=== PATIENT | male | born 1955 | race Caucasian/White ===

== ENCOUNTER → 2024-06-17 | Outpatient (CLI) | payer OTHER, SELFPAY ==
[2024-06-17 11:06] LABS: Parathyroid Hormone Intact 37.7 pg/ml (18.5-88.0); Prostate Specific Antigen 7.83 ng/mL (0-4.00)
[2024-06-17 11:07] LABS: Alanine Aminotransferase 28 U/L (10-49); Albumin, Serum 5.3 gm/dL (3.4-4.8); Albumin/Globulin Ratio 2.4 (1.2-2.2); Alkaline Phosphatase 86 U/L (46-116); Anion Gap 11 (7-16); Aspartate Amino Transferase 14 U/L (0-34); BUN/Creatinine Ratio 21 Ratio (12-20); Bilirubin,Total 0.8 mg/dL (0.3-1.2); Blood Urea Nitrogen 21 mg/dL (9-23); Calcium 10.3 mg/dL (8.3-10.6); Calcium (Corrected) 10.3 mg/dL (8.5-10.1); Carbon Dioxide 26.2 mMol/L (20.0-31.0); Cardiac Risk Estimate 3.9 RATIO (4.0-6.7); Chloride 101 mMol/L (98-107); Cholesterol 132 mg/dL (132-200); Globulin 2.2 gm/dL (2.3-3.5); Glucose 135 mg/dL (74-106); HDL Cholesterol 34 mg/dL (40-60); LDL Cholesterol,Calculated 72 mg/dL (0-130); Osmolality,Calculated 280 (275-295); Potassium 4.3 mMol/L (3.4-5.1); Sodium 138 mMol/L (136-145); Total Protein 7.5 gm/dL (5.7-8.2); Triglycerides 131 mg/dL (30-150); eGFR > 60 See Note
[2024-06-17 11:58] LABS: Glucose Estimated Average 111 mg/dL (80-131); Hemoglobin A1C 5.5 % Hgb (4.8-6.0)
== END | disposition home or self-care (01) ==
LOC: COPL 09:25
PROVIDERS: PCP Family Medicine; Referring Provider Physician Assistant; Visit Provider Physician Assistant
DX: I10 Essential (primary) hypertension (principal); E83.52 Hypercalcemia; E78.5 Hyperlipidemia, unspecified; R97.20 Elevated prostate specific antigen [PSA]
CPT/HCPCS: 36415; 80053; 80061; 83036; 83970; 84153

== ENCOUNTER → 2024-11-18 | Outpatient (CLI) | payer OTHER, SELFPAY ==
[2024-11-18 09:01] LABS: Basophils # (Auto) 0.1 Thou/mm3 (0.0-0.2); Basophils % (Auto) 1 % (0-2.5); Eosinophils # (Auto) 0.1 Thou/mm3 (0.0-0.5); Eosinophils % (Auto) 2 % (0-10); Hematocrit 42.2 % (41.0-53.0); Hemoglobin 14.5 g/dL (13.5-16.0); Immature Granulocytes % (Auto) 0 % (0-0); Immature Granulocytes Auto 0.02 Thou/mm3 (0.00-0.00); Lymphocytes # (Auto) 3.3 Thou/mm3 (1.0-4.8); Lymphocytes % (Auto) 35 % (10-50); Mean Corpuscular HGB Conc 34.4 g/dl (31.0-37.0); Mean Corpuscular Hemoglobin 32.5 pg (25.0-35.0); Mean Corpuscular Volume 95 fL (80-100); Monocytes # (Auto) 0.7 Thou/mm3 (0.0-0.8); Monocytes % (Auto) 8 % (0-12); Neutrophils # (Auto) 5.2 Thou/mm3 (1.8-7.7); Neutrophils % (Auto) 55 % (37-80); Nucleated Red Blood Cell % 0 /100 WBC (0); Platelet Count 230 Thou/mm3 (140-440); RDW Standard Deviation 45.2 fL (35.1-43.9); Red Blood Count 4.46 Miln/mm3 (4.50-5.90); White Blood Count 9.5 Thou/mm3 (3.8-10.6)
[2024-11-18 09:18] LABS: Alanine Aminotransferase 23 U/L (10-49); Albumin, Serum 4.8 gm/dL (3.4-4.8); Alkaline Phosphatase 99 U/L (46-116); Anion Gap 12 (7-16); Aspartate Amino Transferase 22 U/L (0-34); BUN/Creatinine Ratio 20 Ratio (12-20); Bilirubin,Direct 0.2 mg/dL (0.0-0.3); Bilirubin,Total 0.6 mg/dL (0.3-1.2); Blood Urea Nitrogen 18 mg/dL (9-23); Calcium 9.8 mg/dL (8.3-10.6); Carbon Dioxide 26.2 mMol/L (20.0-31.0); Cardiac Risk Estimate 3.3 RATIO (4.0-6.7); Chloride 103 mMol/L (98-107); Cholesterol 114 mg/dL (132-200); Creatinine (Component) 0.9 mg/dL (0.6-1.3); Free T4 (Free Thyroxine) 1.27 ng/dL (0.89-1.76); Glucose 111 mg/dL (74-106); HDL Cholesterol 35 mg/dL (40-60); LDL Cholesterol,Calculated 56 mg/dL (0-130); Osmolality,Calculated 284 (275-295); Potassium 3.9 mMol/L (3.4-5.1); Sodium 141 mMol/L (136-145); Thyroid Stimulating Hormone 1.43 uIU/mL (0.55-4.78); Total Protein 7.5 gm/dL (5.7-8.2); Triglycerides 115 mg/dL (30-150); eGFR > 60 See Note
== END | disposition home or self-care (01) ==
LOC: COPL 07:09
PROVIDERS: PCP Family Medicine; Referring Provider Internal Medicine Cardiovascular Disease; Visit Provider Internal Medicine Cardiovascular Disease
DX: I10 Essential (primary) hypertension (principal); E78.2 Mixed hyperlipidemia; I25.118 Atherosclerotic heart disease of native coronary artery with other forms of angina pectoris
CPT/HCPCS: 36415; 80048; 80061; 80076; 84439; 84443; 85025

== ENCOUNTER → 2024-12-17 | Outpatient (CLI) | payer OTHER, SELFPAY ==
[2024-12-17 09:38] LABS: Glucose Estimated Average 120 mg/dL (80-131); Hemoglobin A1C 5.8 % Hgb (4.8-6.0)
[2024-12-17 09:47] LABS: Alanine Aminotransferase 23 U/L (10-49); Albumin, Serum 4.8 gm/dL (3.4-4.8); Alkaline Phosphatase 91 U/L (46-116); Anion Gap 8 (7-16); Aspartate Amino Transferase 25 U/L (0-34); BUN/Creatinine Ratio 15 Ratio (12-20); Bilirubin,Total 0.5 mg/dL (0.3-1.2); Blood Urea Nitrogen 15 mg/dL (9-23); Calcium 9.7 mg/dL (8.3-10.6); Calcium (Corrected) 9.7 mg/dL (8.5-10.1); Carbon Dioxide 26.8 mMol/L (20.0-31.0); Cardiac Risk Estimate 2.8 RATIO (4.0-6.7); Chloride 105 mMol/L (98-107); Cholesterol 98 mg/dL (132-200); Globulin 2.4 gm/dL (2.3-3.5); Glucose 117 mg/dL (74-106); HDL Cholesterol 35 mg/dL (40-60); LDL Cholesterol,Calculated 41 mg/dL (0-130); Osmolality,Calculated 281 (275-295); Potassium 4.3 mMol/L (3.4-5.1); Sodium 140 mMol/L (136-145); Total Protein 7.2 gm/dL (5.7-8.2); Triglycerides 108 mg/dL (30-150); eGFR > 60 See Note
[2024-12-17 10:22] LABS: Prostate Specific Antigen 10.87 ng/mL (0-4.00)
== END | disposition home or self-care (01) ==
LOC: COPL 07:36
PROVIDERS: PCP Family Medicine; Referring Provider Physician Assistant; Visit Provider Physician Assistant
DX: E78.5 Hyperlipidemia, unspecified (principal); I10 Essential (primary) hypertension; R73.01 Impaired fasting glucose; R97.20 Elevated prostate specific antigen [PSA]
CPT/HCPCS: 36415; 80053; 80061; 83036; 84153

== ENCOUNTER → 2025-06-17 | Outpatient (CLI) | payer OTHER, SELFPAY ==
[2025-06-17 08:06] LABS: Collection Type, Urine Clean Catch
[2025-06-17 08:21] LABS: Bilirubin,Urine Negative (Negative); Blood,Urine Trace (Negative); Clarity,Urine Clear (Clear/Hazy); Color,Urine Lt-Yellow (Lt Yel-Yel); Glucose, Urine Negative (Negative); Hyaline Casts,Urine < 1 /hpf (0-1); Ketones,Urine Negative (Negative); Leukocyte Esterase,Urine Positive (Negative); Nitrite,Urine Negative (Negative); PH,Urine 5.5 (5.0-7.0); Protein,Urine Negative (Neg - Trace); RBC,Urine 7 /hpf (0-3); Specific Gravity,Urine 1.028 (1.001-1.035); Squamous Epithelial Cell,Urine 1 /hpf (0-5); Urobilinogen,Urine Negative mg/dL (0.0-1.0); WBC,Urine 12 /hpf (0-5)
[2025-06-17 08:30] LABS: Basophils # (Auto) 0.1 Thou/mm3 (0.0-0.2); Basophils % (Auto) 1 % (0-2.5); Eosinophils # (Auto) 0.1 Thou/mm3 (0.0-0.5); Eosinophils % (Auto) 1 % (0-10); Hematocrit 42.9 % (41.0-53.0); Hemoglobin 14.7 g/dL (13.5-16.0); Immature Granulocytes Auto 0.02 Thou/mm3 (0.00-0.00); Lymphocytes # (Auto) 3.2 Thou/mm3 (1.0-4.8); Lymphocytes % (Auto) 34 % (10-50); Mean Corpuscular HGB Conc 34.3 g/dl (31.0-37.0); Mean Corpuscular Hemoglobin 32.7 pg (25.0-35.0); Mean Corpuscular Volume 95 fL (80-100); Monocytes # (Auto) 0.8 Thou/mm3 (0.0-0.8); Monocytes % (Auto) 9 % (0-12); Neutrophils # (Auto) 5.2 Thou/mm3 (1.8-7.7); Neutrophils % (Auto) 55 % (37-80); Nucleated Red Blood Cell # 0.00 Thou/mm3 (0.00-0.00); Nucleated Red Blood Cell % 0 /100 WBC (0); Platelet Count 242 Thou/mm3 (140-440); RDW Standard Deviation 46.9 fL (35.1-43.9); Red Blood Count 4.50 Miln/mm3 (4.50-5.90); White Blood Count 9.4 Thou/mm3 (3.8-10.6)
[2025-06-17 08:35] LABS: Glucose Estimated Average 120 mg/dL (80-131); Hemoglobin A1C 5.8 % Hgb (4.8-6.0)
[2025-06-17 09:03] LABS: Alanine Aminotransferase 20 U/L (10-49); Albumin, Serum 5.2 gm/dL (3.4-4.8); Alkaline Phosphatase 90 U/L (46-116); Anion Gap 13 (7-16); Aspartate Amino Transferase 21 U/L (0-34); BUN/Creatinine Ratio 19 Ratio (12-20); Bilirubin,Total 0.6 mg/dL (0.3-1.2); Blood Urea Nitrogen 19 mg/dL (9-23); Calcium 10.3 mg/dL (8.3-10.6); Calcium (Corrected) 10.3 mg/dL (8.5-10.1); Carbon Dioxide 27.4 mMol/L (20.0-31.0); Cardiac Risk Estimate 3.4 RATIO (4.0-6.7); Chloride 103 mMol/L (98-107); Cholesterol 114 mg/dL (132-200); Creatinine (Component) 1.0 mg/dL (0.6-1.3); Glucose 135 mg/dL (74-106); HDL Cholesterol 34 mg/dL (40-60); LDL Cholesterol,Calculated 59 mg/dL (0-130); Osmolality,Calculated 289 (275-295); Potassium 4.4 mMol/L (3.4-5.1); Sodium 143 mMol/L (136-145); Triglycerides 104 mg/dL (30-150); eGFR > 60 See Note
[2025-06-17 09:12] LABS: Culture Indicated,Urine Yes
[2025-06-17 13:13] LABS: Albumin/Globulin Ratio 1.9 (1.2-2.2); Globulin 2.7 gm/dL (2.3-3.5); Thyroid Stimulating Hormone 1.27 uIU/mL (0.55-4.78); Total Protein 7.9 gm/dL (5.7-8.2)
[2025-06-17 13:21] LABS: Prostate Specific Antigen 11.71 ng/mL (0-4.00)
[2025-06-17 13:38] LABS: Vitamin B12 766 pg/mL (211-911); Vitamin D 25 Hydroxy Total 40.9 ng/mL (7.3-40.2)
== END | disposition home or self-care (01) ==
LOC: COPL 07:39
PROVIDERS: PCP Family Medicine; Referring Provider Physician Assistant; Visit Provider Physician Assistant
DX: Z00.00 Encounter for general adult medical examination without abnormal findings (principal); I10 Essential (primary) hypertension; R73.01 Impaired fasting glucose; E78.5 Hyperlipidemia, unspecified; E55.9 Vitamin D deficiency, unspecified
CPT/HCPCS: 36415; 80053; 80061; 81001; 82306; 82607; 83036; 84153; 84443; 85025; 87086

== ENCOUNTER → 2025-06-18 | Outpatient (CLI) | payer OTHER, SELFPAY ==
[2025-06-23 06:40] LABS: Fecal Globin Result NOT DETECTED (NOT DETECTED)
== END | disposition home or self-care (01) ==
LOC: SLDO 12:12
PROVIDERS: Referring Provider Physician Assistant; Visit Provider Physician Assistant
DX: Z00.00 Encounter for general adult medical examination without abnormal findings (principal); I10 Essential (primary) hypertension; R73.01 Impaired fasting glucose; E78.5 Hyperlipidemia, unspecified; E55.9 Vitamin D deficiency, unspecified
CPT/HCPCS: 82274; G0328